=== PATIENT | male | born 1955 | race Caucasian/White ===

== ENCOUNTER 2020-03-06 04:36 | Inpatient (IN) | payer MEDICARE, MEDICAID ==
[~2020-03-06] VITALS: Ht 185.4 cm; Wt 129.3 kg
[2020-03-06] MEDS ORDERED: methylPREDNISolone SOD SUCC 125 MG/2 ML VL IV ONE (05:00)
[2020-03-06] MEDS ORDERED: LORazepam 2MG/ML-1ML VIAL IV ONE (05:00)
[2020-03-06] MEDS ORDERED: FUROSEMIDE 40 MG/4 ML VIAL IV ONE (05:00)
[2020-03-06] MEDS ORDERED: methylPREDNISolone SOD SUCC 125 MG/2 ML VL ONE (05:02)
[2020-03-06] MEDS ORDERED: ONDANSETRON HCL 4 MG/2 ML VIAL ONE (05:02)
[2020-03-06] MEDS ORDERED: FUROSEMIDE 40 MG/4 ML VIAL ONE (05:02)
[2020-03-06] MEDS ORDERED: LORazepam 2MG/ML-1ML VIAL ONE (05:02)
[2020-03-06] MEDS ORDERED: ONDANSETRON HCL 4 MG/2 ML VIAL IV ONE ×2 (05:15)
[2020-03-06 05:30] LABS: Basophils # (auto) 0 10 ^3/uL (0-0.2); Eosinophils # (auto) 0 10 ^3/uL (0-0.8); Monocytes # (auto) 0.8 10 ^3/uL (0-1.3); Neutrophils # (auto) 9.7 10 ^3/uL (1.6-8.6); Red Blood Cells 6.08 10^6/uL (4.5-5.90); White Blood Cell 11.5 10^3/uL (4.4-10.8)
[2020-03-06 05:32] LABS: Basophils % (auto) 0.2 % (0.0-2.0); Hematocrit 55.9 % (41.0-53.0); Hemoglobin 18.6 g/dL (13.5-17.5); Lymphocytes % (auto) 8.6 % (10.0-50.0); Mean Corpuscular Hemoglobin 30.6 pg (28.0-32.0); Mean Corpuscular Hgb Conc. 33.3 g/dL (32.0-36.0); Mean Corpuscular Volume 91.9 fL (80.0-100.0); Monocytes % (auto) 6.8 % (0.0-12.0); Neutrophils % (auto) 84.4 % (37.0-80.0); Nucleated Red Blood Cells % 0.3 %; Platelet Count (auto) 159 10^3/uL (140-450); Red Cell Distribution Width 13.8 % (11.8-14.3)
[2020-03-06] MEDS ORDERED: AMIODARONE 450mg/250ml AE 250 ML IV ONE (05:39)
[2020-03-06] MEDS ORDERED: AMIODARONE HCL 150 MG in D5W 5% 100 ML IV ONE (05:45)
[2020-03-06] MEDS ORDERED: AMIODARONE 450mg/250ml AE 250 ML IV SCH (05:45)
[2020-03-06 05:46] LABS: Albumin 3.6 g/dL (3.4-5.0); Calcium 8.6 mg/dL (8.5-10.1); Potassium 4.9 mmol/L (3.5-5.1)
[2020-03-06 05:48] LABS: Lactic Acid w/Reflex 4.8 mmol/L (0.4-2.0)
[2020-03-06 05:49] LABS: INR 1.5 (0.9-1.15); Partial Thromboplastin Time 37.7 sec (23.0-31.2)
[2020-03-06 05:53] LABS: BUN/Creatinine Ratio 20.2; Total Protein 9.1 g/dL (6.4-8.2)
[2020-03-06] MEDS ORDERED: ENOXAPARIN SOD 150 MG/1 ML SYRINGE SC ONE (06:00)
[2020-03-06 06:02] VITALS: BP 118/58
--- NOTE | 2020-03-06 07:35 | NUR ---
Respiratory note: TITRATED FIO2 TO 30% POST AM ABG.
[2020-03-06] MEDS ORDERED: MORPHINE SULF INJ 2 MG/ML SYRINGE 1ML IV PRN (10:00)
[2020-03-06] MEDS ORDERED: NITROGLYCERIN 0.4 MG SL TAB SL PRN (10:00)
[2020-03-06 10:07] VITALS: BP 110/44
--- NOTE | 2020-03-06 10:20 | NUR ---
Respiratory note: TOOK PATIENT OFF BIPAP AND PLACED PT ON A 3L OXYMIZER, SPO2 98%. DR. STOVALL AT BEDSIDE. DRU FORTE INFORMED.
[2020-03-06] MEDS ORDERED: SODIUM CHLORIDE 0.9% 1,000 ML IV ONE ×2 (10:45→14:30)
[2020-03-06] MEDS ORDERED: REMDESIVIR PER PHARMACY 0 ML IV SCH (10:45)
[2020-03-06] MEDS: ENOXAPARIN SOD 150 MG/1 ML SYRINGE SC SCH (11:00)
[2020-03-06] MEDS: AMIODARONE 450mg/250ml AE 250 ML IV SCH (11:08)
[2020-03-06] MEDS ORDERED: HYDR-531 PO (11:14)
[2020-03-06] MEDS ORDERED: BISA-4 PO (11:15)
[2020-03-06] MEDS ORDERED: RIVA20TA PO (11:15)
[2020-03-06] MEDS ORDERED: ALLO100T PO (11:15)
[2020-03-06] MEDS ORDERED: OXYB5TAB24 PO (11:15)
[2020-03-06] MEDS ORDERED: LISI-646 PO (11:15)
[2020-03-06] MEDS ORDERED: MORP1TAB12 PO (11:15)
[2020-03-06] MEDS ORDERED: INDO50CA82 PO (11:15)
[2020-03-06] MEDS ORDERED: TAMS0.4C36 PO (11:15)
[2020-03-06] MEDS ORDERED: CLOP75TA28 PO (11:15)
[2020-03-06] MEDS ORDERED: DEXTROSE (50%) 50ML SYRG IV PRN (13:45)
[2020-03-06] MEDS ORDERED: CLOPIDOGREL 300 MG TAB PO ONE (14:45)
[2020-03-06] MEDS: ACCU-CHEK COMFORT CURVE STRIP VI SCH ×2 (17:24→20:58)
[2020-03-06] MEDS: InsuLIN REG 1unit/0.01ml Soln (100units/ml) SC SCH ×2 (17:26→21:01)
[2020-03-06] MEDS ORDERED: ENOXAPARIN SOD 40 MG/0.4 ML SYRINGE SC SCH (22:00)
[2020-03-06] MEDS: BUDESONIDE (INHALATION) 180 MCG IH IN SCH (22:00)
[2020-03-06] MEDS: ALBUTEROL SULF HFA 90MCG INH 200DOSE IN PRN (22:36)
[2020-03-07] MEDS: AMIODARONE 450mg/250ml AE 250 ML IV SCH ×2 (02:45→13:18)
[2020-03-07 06:21] LABS: Basophils # (auto) 0 10 ^3/uL (0-0.2); Basophils % (auto) 0.2 % (0.0-2.0); Eosinophils # (auto) 0 10 ^3/uL (0-0.8); Hematocrit 49.8 % (41.0-53.0); Hemoglobin 16.1 g/dL (13.5-17.5); Lymphocytes # (auto) 1.8 10 ^3/uL (0.4-5.4); Lymphocytes % (auto) 11.8 % (10.0-50.0); Mean Corpuscular Hemoglobin 29.9 pg (28.0-32.0); Mean Corpuscular Hgb Conc. 32.3 g/dL (32.0-36.0); Mean Corpuscular Volume 92.8 fL (80.0-100.0); Monocytes # (auto) 0.6 10 ^3/uL (0-1.3); Monocytes % (auto) 4.1 % (0.0-12.0); Neutrophils # (auto) 12.6 10 ^3/uL (1.6-8.6); Neutrophils % (auto) 83.9 % (37.0-80.0); Nucleated Red Blood Cells % 0.2 %; Platelet Count (auto) 142 10^3/uL (140-450); Red Blood Cells 5.37 10^6/uL (4.5-5.90); Red Cell Distribution Width 13.9 % (11.8-14.3)
[2020-03-07 06:42] LABS: INR 1.16 (0.9-1.15); Partial Thromboplastin Time 34.2 sec (23.0-31.2)
[2020-03-07 06:48] LABS: Potassium 4.5 mmol/L (3.5-5.1)
[2020-03-07 07:15] LABS: Albumin 3.3 g/dL (3.4-5.0); BUN/Creatinine Ratio 35.3; Calcium 8.3 mg/dL (8.5-10.1); Total Protein 7.6 g/dL (6.4-8.2)
[2020-03-07] MEDS: BUDESONIDE (INHALATION) 180 MCG IH IN SCH ×2 (07:17→22:00)
[2020-03-07] MEDS: InsuLIN REG 1unit/0.01ml Soln (100units/ml) SC SCH ×4 (07:24→21:38)
[2020-03-07] MEDS: ACCU-CHEK COMFORT CURVE STRIP VI SCH ×4 (07:25→21:42)
[2020-03-07] MEDS: ASCORBIC ACID 1,000 MG TAB PO SCH (07:59)
[2020-03-07] MEDS: ZINC SULFATE 220mg CAP or TAB PO SCH (07:59)
[2020-03-07] MEDS: DexAMETHasone SOD PHOS 10MG/1ML VIAL INJ IV SCH (07:59)
[2020-03-07] MEDS: ENOXAPARIN SOD 150 MG/1 ML SYRINGE SC SCH ×2 (08:00→21:42)
[2020-03-07] MEDS: CHOLECALCIFEROL (VITD3) 2,000 UNIT CAP PO SCH (08:00)
[2020-03-07] MEDS ORDERED: METOPROLOL TARTRATE 1MG/1ML-5ML VIAL IV ONE ×2 (08:06→08:30)
[2020-03-07] MEDS ORDERED: clonazePAM 0.5 MG TAB PO ONE (08:30)
[2020-03-07] MEDS ORDERED: cloNIDine HCL 0.1 MG TAB PO PRN (08:30)
[2020-03-07] MEDS ORDERED: LOPERAMIDE HCL 2 MG CAP PO PRN (09:30)
[2020-03-07] MEDS ORDERED: PROMETHAZINE HCL 25 MG/ML 1ML IV PRN (09:30)
[2020-03-07] MEDS ORDERED: PROMETHAZINE HCL 25 MG/ML 1ML ONE (09:42)
[2020-03-07] MEDS ORDERED: LOPERAMIDE HCL 2 MG CAP ONE (09:42)
[2020-03-07] MEDS: ALBUTEROL SULF HFA 90MCG INH 200DOSE IN PRN (11:00)
[2020-03-07] MEDS ORDERED: AMIODARONE HCL 200 MG TAB PO ONE ×2 (14:00→14:30)
[2020-03-07] MEDS ORDERED: AMIODARONE HCL 200 MG TAB ONE (14:38)
[2020-03-07] MEDS: cloNIDine HCL 0.1 MG TAB PO PRN ×2 (18:02→23:35)
[2020-03-07] MEDS: AMIODARONE HCL 200 MG TAB PO SCH (21:42)
[2020-03-07] MEDS ORDERED: AMIODARONE HCL 200 MG TAB PO SCH (22:00)
[2020-03-08] MEDS ORDERED: ACETAMINOPHEN 650 mg PER 20.3 mL UD ONE (04:34)
[2020-03-08] MEDS: ACETAMINOPHEN 650 mg PER 20.3 mL UD PO PRN (04:41)
[2020-03-08 07:20] LABS: Albumin 3.1 g/dL (3.4-5.0); Calcium 8.2 mg/dL (8.5-10.1); Potassium 4.1 mmol/L (3.5-5.1)
[2020-03-08 07:24] LABS: Total Protein 7.4 g/dL (6.4-8.2)
[2020-03-08] MEDS: BUDESONIDE (INHALATION) 180 MCG IH IN SCH ×2 (08:10→21:39)
[2020-03-08] MEDS: ALBUTEROL SULF HFA 90MCG INH 200DOSE IN PRN ×2 (08:10→21:39)
[2020-03-08] MEDS: DexAMETHasone SOD PHOS 10MG/1ML VIAL INJ IV SCH (09:15)
[2020-03-08] MEDS: ACCU-CHEK COMFORT CURVE STRIP VI SCH ×4 (09:15→22:00)
[2020-03-08] MEDS: ZINC SULFATE 220mg CAP or TAB PO SCH (09:15)
[2020-03-08] MEDS: InsuLIN REG 1unit/0.01ml Soln (100units/ml) SC SCH ×4 (09:15→22:00)
[2020-03-08] MEDS: AMIODARONE HCL 200 MG TAB PO SCH ×2 (09:15→22:00)
[2020-03-08] MEDS: CHOLECALCIFEROL (VITD3) 2,000 UNIT CAP PO SCH (09:16)
[2020-03-08] MEDS: ENOXAPARIN SOD 150 MG/1 ML SYRINGE SC SCH ×2 (09:16→22:00)
[2020-03-08] MEDS: ASCORBIC ACID 1,000 MG TAB PO SCH (09:16)
--- NOTE | 2020-03-08 10:40 | NUR ---
WOUND CARE NOTE: ADDED PATIENT TO SKIN INTEGRITY MONITORING D/T LOW ALESSIA SCORE/ICU STATUS. PATIENT ADMITTED TO [facility] WITH DIAGNOSIS OF COVID 19, NSTEMI. CURRENT ALESSIA SCORE ASSESSED AT 12. WILL CALL BULB PLANTER TO ORDER HOSPITAL BED. PATIENT TO BE PLACED, PENDING DELIVERY BY [facility]. PATIENT HAS NO SKIN ISSUES PER BEDSIDE NURSE. PATIENT WOULD BENEFIT FROM: FREQUENT TURN SCHEDULE Q 2 HOURS, PRN CONDITION PERMITS, WITH PRESSURE REDISTRIBUTION USING PILLOWS/WEDGES, BID/PRN APPLICATION WITH MOISTURE BARRIER CREAM, OPTIFOAM GENTLE SACRAL DRESSING PREVENTATIVE, SKIN/WOUND CARE PLAN CONTINUED MONITORING BY WOUND CARE TEAM.
[2020-03-09] MEDS: SOD CHL 0.45% 1,000 ML IV SCH ×2 (04:45→23:30)
[2020-03-09 06:25] LABS: Basophils # (auto) 0.1 10 ^3/uL (0-0.2); Basophils % (auto) 0.4 % (0.0-2.0); Eosinophils # (auto) 0 10 ^3/uL (0-0.8); Hematocrit 50.3 % (41.0-53.0); Hemoglobin 16.8 g/dL (13.5-17.5); Lymphocytes # (auto) 0.8 10 ^3/uL (0.4-5.4); Lymphocytes % (auto) 5.8 % (10.0-50.0); Mean Corpuscular Hemoglobin 30.8 pg (28.0-32.0); Mean Corpuscular Hgb Conc. 33.5 g/dL (32.0-36.0); Monocytes # (auto) 0.9 10 ^3/uL (0-1.3); Monocytes % (auto) 6.6 % (0.0-12.0); Neutrophils # (auto) 12.3 10 ^3/uL (1.6-8.6); Neutrophils % (auto) 87.2 % (37.0-80.0); Nucleated Red Blood Cells % 0.1 %; Red Blood Cells 5.47 10^6/uL (4.5-5.90); White Blood Cell 14.2 10^3/uL (4.4-10.8)
[2020-03-09] MEDS: ACCU-CHEK COMFORT CURVE STRIP VI SCH ×4 (06:37→22:03)
[2020-03-09 06:42] LABS: Albumin 2.9 g/dL (3.4-5.0); Calcium 8.1 mg/dL (8.5-10.1); Magnesium 2.9 mg/dL (1.6-2.6); Potassium 4.3 mmol/L (3.5-5.1)
[2020-03-09 06:50] LABS: BUN/Creatinine Ratio 41.6; Bilirubin, Total 1.2 mg/dL (0.2-1.0); CRP High Sensitivity 1.81 mg/dL (< 0.3); Total Protein 7.4 g/dL (6.4-8.2)
[2020-03-09] MEDS: InsuLIN REG 1unit/0.01ml Soln (100units/ml) SC SCH ×4 (07:44→22:03)
[2020-03-09 07:55] LABS: Platelet Count (auto) 155 10^3/uL (140-450)
[2020-03-09] MEDS: BUDESONIDE (INHALATION) 180 MCG IH IN SCH ×2 (07:55→21:35)
[2020-03-09] MEDS: ALBUTEROL SULF HFA 90MCG INH 200DOSE IN PRN ×2 (08:36→21:35)
[2020-03-09] MEDS: DexAMETHasone SOD PHOS 10MG/1ML VIAL INJ IV SCH (12:14)
[2020-03-09] MEDS: PANTOPRAZOLE 40 MG/10 ML VIAL INJ IV SCH (12:14)
[2020-03-09] MEDS: CHOLECALCIFEROL (VITD3) 2,000 UNIT CAP PO SCH (12:14)
[2020-03-09] MEDS: ZINC SULFATE 220mg CAP or TAB PO SCH (12:15)
[2020-03-09] MEDS: ENOXAPARIN SOD 150 MG/1 ML SYRINGE SC SCH ×2 (12:15→22:03)
[2020-03-09] MEDS: ASCORBIC ACID 1,000 MG TAB PO SCH (12:15)
[2020-03-09] MEDS: AMIODARONE HCL 200 MG TAB PO SCH ×2 (12:15→22:02)
[2020-03-09] MEDS: AZITHROMYCIN 250 MG TAB PO SCH (12:15)
[2020-03-10] MEDS: ACETAMINOPHEN 650 mg PER 20.3 mL UD PO PRN (00:36)
[2020-03-10] MEDS: cloNIDine HCL 0.1 MG TAB PO PRN (01:27)
[2020-03-10] MEDS: ALBUTEROL SULF HFA 90MCG INH 200DOSE IN PRN ×2 (06:48→18:36)
[2020-03-10] MEDS: BUDESONIDE (INHALATION) 180 MCG IH IN SCH ×2 (06:49→18:00)
[2020-03-10 06:52] LABS: Basophils # (auto) 0 10 ^3/uL (0-0.2); Eosinophils # (auto) 0 10 ^3/uL (0-0.8); Hematocrit 49.8 % (41.0-53.0); Hemoglobin 16.7 g/dL (13.5-17.5); Lymphocytes # (auto) 0.9 10 ^3/uL (0.4-5.4); Lymphocytes % (auto) 6.3 % (10.0-50.0); Mean Corpuscular Hemoglobin 30.9 pg (28.0-32.0); Mean Corpuscular Hgb Conc. 33.6 g/dL (32.0-36.0); Mean Corpuscular Volume 91.9 fL (80.0-100.0); Monocytes # (auto) 0.9 10 ^3/uL (0-1.3); Monocytes % (auto) 6.3 % (0.0-12.0); Neutrophils # (auto) 12.6 10 ^3/uL (1.6-8.6); Neutrophils % (auto) 87.4 % (37.0-80.0); Nucleated Red Blood Cells % 0.1 %; Platelet Count (auto) 159 10^3/uL (140-450); Red Blood Cells 5.42 10^6/uL (4.5-5.90); Red Cell Distribution Width 13.6 % (11.8-14.3); White Blood Cell 14.4 10^3/uL (4.4-10.8)
[2020-03-10] MEDS: InsuLIN REG 1unit/0.01ml Soln (100units/ml) SC SCH ×4 (07:00→22:26)
[2020-03-10] MEDS: ACCU-CHEK COMFORT CURVE STRIP VI SCH ×4 (07:03→22:27)
[2020-03-10 07:08] LABS: Magnesium 2.8 mg/dL (1.6-2.6); Potassium 4.4 mmol/L (3.5-5.1)
[2020-03-10 07:18] LABS: Albumin 2.8 g/dL (3.4-5.0); BUN/Creatinine Ratio 37.3; Bilirubin, Total 1.4 mg/dL (0.2-1.0); CRP High Sensitivity 1.56 mg/dL (< 0.3); Calcium 8.3 mg/dL (8.5-10.1); Total Protein 7.6 g/dL (6.4-8.2)
[2020-03-10] MEDS: PANTOPRAZOLE 40 MG/10 ML VIAL INJ IV SCH (09:31)
[2020-03-10] MEDS: DexAMETHasone SOD PHOS 10MG/1ML VIAL INJ IV SCH (09:31)
[2020-03-10] MEDS: ZINC SULFATE 220mg CAP or TAB PO SCH (09:32)
[2020-03-10] MEDS: ASCORBIC ACID 1,000 MG TAB PO SCH (09:33)
[2020-03-10] MEDS: AMIODARONE HCL 200 MG TAB PO SCH ×2 (09:33→22:26)
[2020-03-10] MEDS: CHOLECALCIFEROL (VITD3) 2,000 UNIT CAP PO SCH (09:33)
[2020-03-10] MEDS: ENOXAPARIN SOD 150 MG/1 ML SYRINGE SC SCH ×2 (09:34→22:27)
[2020-03-10] MEDS: AZITHROMYCIN 250 MG TAB PO SCH (09:34)
[2020-03-10] MEDS: SOD CHL 0.45% 1,000 ML IV SCH (14:05)
[2020-03-11 06:08] LABS: Basophils # (auto) 0 10 ^3/uL (0-0.2); Basophils % (auto) 0.1 % (0.0-2.0); Eosinophils # (auto) 0 10 ^3/uL (0-0.8); Hematocrit 46.9 % (41.0-53.0); Hemoglobin 15.6 g/dL (13.5-17.5); Lymphocytes # (auto) 0.9 10 ^3/uL (0.4-5.4); Lymphocytes % (auto) 6.3 % (10.0-50.0); Mean Corpuscular Hemoglobin 30.3 pg (28.0-32.0); Mean Corpuscular Hgb Conc. 33.3 g/dL (32.0-36.0); Monocytes # (auto) 0.9 10 ^3/uL (0-1.3); Neutrophils # (auto) 11.7 10 ^3/uL (1.6-8.6); Neutrophils % (auto) 86.6 % (37.0-80.0); Platelet Count (auto) 188 10^3/uL (140-450); Red Blood Cells 5.15 10^6/uL (4.5-5.90); Red Cell Distribution Width 13.1 % (11.8-14.3); White Blood Cell 13.6 10^3/uL (4.4-10.8)
[2020-03-11 06:20] LABS: Albumin 2.3 g/dL (3.4-5.0); Calcium 7.5 mg/dL (8.5-10.1); Potassium 4.1 mmol/L (3.5-5.1)
[2020-03-11 06:28] LABS: BUN/Creatinine Ratio 36.4; Bilirubin, Total 1.1 mg/dL (0.2-1.0); CRP High Sensitivity 0.73 mg/dL (< 0.3); Magnesium 2.7 mg/dL (1.6-2.6); Total Protein 6.3 g/dL (6.4-8.2)
[2020-03-11] MEDS: InsuLIN REG 1unit/0.01ml Soln (100units/ml) SC SCH ×4 (06:37→22:00)
[2020-03-11] MEDS: ACCU-CHEK COMFORT CURVE STRIP VI SCH ×4 (06:37→22:00)
[2020-03-11] MEDS: BUDESONIDE (INHALATION) 180 MCG IH IN SCH ×2 (06:42→19:55)
[2020-03-11] MEDS: ALBUTEROL SULF HFA 90MCG INH 200DOSE IN PRN ×2 (06:42→19:59)
[2020-03-11] MEDS: ASPirin 81 mg TAB PO SCH (09:30)
[2020-03-11] MEDS: DexAMETHasone SOD PHOS 10MG/1ML VIAL INJ IV SCH (09:30)
[2020-03-11] MEDS: PANTOPRAZOLE 40 MG/10 ML VIAL INJ IV SCH (09:30)
[2020-03-11] MEDS: ZINC SULFATE 220mg CAP or TAB PO SCH (09:31)
[2020-03-11] MEDS: AMIODARONE HCL 200 MG TAB PO SCH ×2 (09:31→22:00)
[2020-03-11] MEDS: CARVEDILOL 3.125 MG TAB PO SCH ×2 (09:31→22:00)
[2020-03-11] MEDS: AZITHROMYCIN 250 MG TAB PO SCH (09:32)
[2020-03-11] MEDS: SACUBITRIL-VALSARTAN 24mg/26mg TAB PO SCH ×2 (09:32→22:40)
[2020-03-11] MEDS: ENOXAPARIN SOD 150 MG/1 ML SYRINGE SC SCH ×2 (09:32→22:00)
[2020-03-11] MEDS: ASCORBIC ACID 1,000 MG TAB PO SCH (09:32)
[2020-03-11] MEDS: CLOPIDOGREL BISULFATE 75 MG TAB PO SCH (09:32)
[2020-03-11] MEDS: CHOLECALCIFEROL (VITD3) 2,000 UNIT CAP PO SCH (09:32)
[2020-03-11] MEDS ORDERED: REMDESIVIR PER PHARMACY 0 ML IV SCH (13:15)
--- NOTE | 2020-03-11 14:42 | NUR ---
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 pt is currently on cardiac diet with no PO reocrded yet. pt with no distress noted per nursing Est energy needs: 3087-5864 kcal (11-14 kcal/kg BW 129kg), Est protein needs: 84-100 g (1-1.2g/kg IBW 84kg). Will monitor and reassess prn. Labs: BUN 46 H GLU 126 H CA 7.5 L, ANA 2.7 H ALB 2.3 L BM: Pt has no BM reported per RN note Skin: BS 12 high risk, full details in residential caregiver note. PES: Partially resolved: Inadequate oral intake r/t current medical condition aeb pt with NPo diet order Altered nutrition related labs r/t chronic medical condition and current medical condition aeb elevated BUN, hyperglycemia, mod hypoalb hypocalcemia Comments: Continue to monitor PO intake, labs, skin. F/u high 3-5 days. Rec: 1) Refer pt to [facility] on Dc 2) Continue current plan of care.
[2020-03-12] MEDS: InsuLIN REG 1unit/0.01ml Soln (100units/ml) SC SCH ×4 (06:34→22:30)
[2020-03-12] MEDS: ACCU-CHEK COMFORT CURVE STRIP VI SCH ×4 (06:34→22:30)
[2020-03-12 07:38] LABS: Basophils # (auto) 0 10 ^3/uL (0-0.2); Basophils % (auto) 0.2 % (0.0-2.0); Eosinophils # (auto) 0 10 ^3/uL (0-0.8); Eosinophils % (auto) 0.1 % (0.0-7.0); Hemoglobin 16.5 g/dL (13.5-17.5); Lymphocytes # (auto) 1.1 10 ^3/uL (0.4-5.4); Mean Corpuscular Hemoglobin 30.9 pg (28.0-32.0); Mean Corpuscular Hgb Conc. 34.3 g/dL (32.0-36.0); Mean Corpuscular Volume 90.2 fL (80.0-100.0); Monocytes # (auto) 1.1 10 ^3/uL (0-1.3); Neutrophils # (auto) 12.9 10 ^3/uL (1.6-8.6); Neutrophils % (auto) 85.7 % (37.0-80.0); Nucleated Red Blood Cells % 0.1 %; Platelet Count (auto) 222 10^3/uL (140-450); Red Blood Cells 5.32 10^6/uL (4.5-5.90); Red Cell Distribution Width 12.9 % (11.8-14.3); White Blood Cell 15.1 10^3/uL (4.4-10.8)
[2020-03-12 08:08] LABS: Potassium 3.9 mmol/L (3.5-5.1)
[2020-03-12 08:20] LABS: Albumin 2.4 g/dL (3.4-5.0); BUN/Creatinine Ratio 38.9; Bilirubin, Total 1.1 mg/dL (0.2-1.0); CRP High Sensitivity 0.39 mg/dL (< 0.3); Magnesium 2.7 mg/dL (1.6-2.6); Total Protein 6.5 g/dL (6.4-8.2)
[2020-03-12] MEDS: PANTOPRAZOLE 40 MG/10 ML VIAL INJ IV SCH (11:30)
[2020-03-12] MEDS: DexAMETHasone SOD PHOS 10MG/1ML VIAL INJ IV SCH (11:30)
[2020-03-12] MEDS: ASPirin 81 mg TAB PO SCH (11:48)
[2020-03-12] MEDS: CLOPIDOGREL BISULFATE 75 MG TAB PO SCH (11:48)
[2020-03-12] MEDS: AMIODARONE HCL 200 MG TAB PO SCH ×2 (11:48→22:30)
[2020-03-12] MEDS: CARVEDILOL 3.125 MG TAB PO SCH ×3 (11:48→23:30)
[2020-03-12] MEDS: ASCORBIC ACID 1,000 MG TAB PO SCH (11:49)
[2020-03-12] MEDS: ENOXAPARIN SOD 150 MG/1 ML SYRINGE SC SCH ×2 (11:49→22:30)
[2020-03-12] MEDS: CHOLECALCIFEROL (VITD3) 2,000 UNIT CAP PO SCH (11:49)
[2020-03-12] MEDS: AZITHROMYCIN 250 MG TAB PO SCH (11:49)
[2020-03-12] MEDS: SACUBITRIL-VALSARTAN 24mg/26mg TAB PO SCH ×2 (11:58→22:30)
[2020-03-12] MEDS: ZINC SULFATE 220mg CAP or TAB PO SCH (11:58)
[2020-03-12] MEDS ORDERED: REMDESIVIR 200 MG in NS 210ml LOADING DOSE ADULT IV ONE (15:00)
[2020-03-12] MEDS: BUDESONIDE (INHALATION) 180 MCG IH IN SCH ×2 (15:09→22:00)
--- NOTE | 2020-03-12 15:15 | NUR ---
Respiratory note: 10:00AM PULMICORT INH NON-ADMINISTERED DUE TO THERAPIST UNAVAILABLE. RN AWARE TO HAVE RT PAGED IF NEEDED. WILL HAVE NOC THERAPIST FOLLOW UP WITH NEXT SCHEDULED AT 22:00.
[2020-03-12] MEDS: Ensure HIGH Protein Chocolate 8oz Bottle PO SCH (18:15)
--- NOTE | 2020-03-12 22:00 | NUR ---
Respiratory note: THERAPIST UNAVAILABLE FOR MDI TX, WILL HAVE DAYSHIFT RT FOLLOW UP WITH NEXT SCHEDULED MDI [place].
[2020-03-13] MEDS: CARVEDILOL 3.125 MG TAB PO SCH ×3 (03:12→16:30)
[2020-03-13 05:56] LABS: Basophils # (auto) 0 10 ^3/uL (0-0.2); Basophils % (auto) 0.1 % (0.0-2.0); Eosinophils # (auto) 0 10 ^3/uL (0-0.8); Eosinophils % (auto) 0.1 % (0.0-7.0); Hematocrit 45.8 % (41.0-53.0); Hemoglobin 15.5 g/dL (13.5-17.5); Lymphocytes # (auto) 1.5 10 ^3/uL (0.4-5.4); Lymphocytes % (auto) 8.2 % (10.0-50.0); Mean Corpuscular Hemoglobin 30.4 pg (28.0-32.0); Mean Corpuscular Hgb Conc. 33.8 g/dL (32.0-36.0); Mean Corpuscular Volume 90.1 fL (80.0-100.0); Monocytes # (auto) 1.2 10 ^3/uL (0-1.3); Monocytes % (auto) 6.4 % (0.0-12.0); Neutrophils # (auto) 15.4 10 ^3/uL (1.6-8.6); Neutrophils % (auto) 85.2 % (37.0-80.0); Nucleated Red Blood Cells % 0.1 %; Platelet Count (auto) 294 10^3/uL (140-450); Red Blood Cells 5.08 10^6/uL (4.5-5.90); Red Cell Distribution Width 13.2 % (11.8-14.3); White Blood Cell 18.1 10^3/uL (4.4-10.8)
[2020-03-13] MEDS: ACCU-CHEK COMFORT CURVE STRIP VI SCH ×4 (06:03→22:03)
[2020-03-13] MEDS: InsuLIN REG 1unit/0.01ml Soln (100units/ml) SC SCH ×4 (06:03→22:02)
[2020-03-13 06:27] LABS: Potassium 4.3 mmol/L (3.5-5.1)
[2020-03-13 06:55] LABS: Albumin 2.3 g/dL (3.4-5.0); BUN/Creatinine Ratio 50.5; CRP High Sensitivity 0.28 mg/dL (< 0.3); Calcium 8.7 mg/dL (8.5-10.1); Magnesium 2.5 mg/dL (1.6-2.6); Total Protein 6.4 g/dL (6.4-8.2)
[2020-03-13] MEDS: BUDESONIDE (INHALATION) 180 MCG IH IN SCH ×2 (07:51→20:01)
[2020-03-13] MEDS: Ensure HIGH Protein Chocolate 8oz Bottle PO SCH ×3 (08:00→18:00)
[2020-03-13] MEDS ORDERED: REMDESIVIR PER PHARMACY 0 ML IV SCH (09:45)
[2020-03-13] MEDS: ZINC SULFATE 220mg CAP or TAB PO SCH (09:56)
[2020-03-13] MEDS: DexAMETHasone SOD PHOS 10MG/1ML VIAL INJ IV SCH (09:56)
[2020-03-13] MEDS: ASCORBIC ACID 1,000 MG TAB PO SCH (09:56)
[2020-03-13] MEDS: AZITHROMYCIN 250 MG TAB PO SCH (09:56)
[2020-03-13] MEDS: ENOXAPARIN SOD 150 MG/1 ML SYRINGE SC SCH ×2 (09:56→22:03)
[2020-03-13] MEDS: AMIODARONE HCL 200 MG TAB PO SCH ×2 (09:56→21:57)
[2020-03-13] MEDS: SACUBITRIL-VALSARTAN 24mg/26mg TAB PO SCH ×2 (09:56→22:00)
[2020-03-13] MEDS: CHOLECALCIFEROL (VITD3) 2,000 UNIT CAP PO SCH (09:56)
[2020-03-13] MEDS: CLOPIDOGREL BISULFATE 75 MG TAB PO SCH (09:56)
[2020-03-13] MEDS: ASPirin 81 mg TAB PO SCH (09:56)
[2020-03-13] MEDS: PANTOPRAZOLE 40 MG/10 ML VIAL INJ IV SCH (09:56)
[2020-03-13] MEDS ORDERED: REMDESIVIR 100 MG in SODIUM CHL 0.9% 250 ML IV SCH (15:00)
[2020-03-13] MEDS: ALBUTEROL SULF HFA 90MCG INH 200DOSE IN PRN (20:01)
[2020-03-14] MEDS: CARVEDILOL 3.125 MG TAB PO SCH ×2 (02:23→02:25)
[2020-03-14] MEDS: InsuLIN REG 1unit/0.01ml Soln (100units/ml) SC SCH (05:51)
[2020-03-14 05:52] LABS: Hematocrit 42.1 % (41.0-53.0); Hemoglobin 13.7 g/dL (13.5-17.5); Mean Corpuscular Hgb Conc. 32.6 g/dL (32.0-36.0); Platelet Count (auto) 355 10^3/uL (140-450); Red Blood Cells 4.58 10^6/uL (4.5-5.90); Red Cell Distribution Width 13.5 % (11.8-14.3); White Blood Cell 25.7 10^3/uL (4.4-10.8)
[2020-03-14] MEDS: ACCU-CHEK COMFORT CURVE STRIP VI SCH (05:52)
[2020-03-14 06:07] LABS: Potassium 5.2 mmol/L (3.5-5.1)
[2020-03-14 06:17] LABS: Albumin 2.3 g/dL (3.4-5.0); BUN/Creatinine Ratio 37.1; Bilirubin, Total 0.9 mg/dL (0.2-1.0); CRP High Sensitivity 0.25 mg/dL (< 0.3); Calcium 7.7 mg/dL (8.5-10.1)
[2020-03-14] MEDS ORDERED: NOREPINEPHRINE 8 MG/250ML KIT 250 ML IV ONE ×2 (06:25→08:52)
[2020-03-14 06:50] LABS: Basophils % (manual) 0 (0.0-2.0); Blast Cells 0; Eosinophils % (manual) 0 (0-7); Promyelocytes % 0; Reactive Lymphocytes 0
[2020-03-14 08:00] VITALS: BP 139/48
[2020-03-14] MEDS ORDERED: MIDAZOLAM DRIP 50 mg/50mL 50 ML IV ONE (08:05)
--- NOTE | 2020-03-14 08:05 | NUR ---
Respiratory note: CODE BLUE CALLED OVERHEAD. PT ORALLY INTUBATED PER ON FIRST ATTEMPT. COLOR CHANGE NOTED ON CO2 DETECTOR. BILATERAL BREATH SOUNDS HEARD. BILATERAL CHEST RISE AND FALL. PT PLACED ON VENTILATOR. PT CODED MULTIPLE TIMES SEE CODE SHEET.
[2020-03-14 08:21] LABS: Band Neutrophils % (manual) 3; Lymphocytes % (manual) 11 (10.0-50.0); Metamyelocytes % 3; Monocytes % (manual) 1 (0-12); Myelocytes % 1
[2020-03-14] MEDS ORDERED: MIDAZOLAM DRIP 50 mg/50mL 50 ML IV SCH (08:30)
[2020-03-14] MEDS ORDERED: SODIUM BICARBONATE 8.4% INJ 50ML SYRINGE ONE ×2 (08:45→08:52)
[2020-03-14] MEDS ORDERED: EPINEPHrine HCL 1 MG/10 ML SYRG ONE (09:08)
[2020-03-14] MEDS ORDERED: REMDESIVIR PER PHARMACY 0 ML IV SCH (13:30)
[2020-03-14] MEDS ORDERED: CALCIUM CHLOR(10%) 100MG/ML 10ML SYRINGE IV ONE (14:41)
[2020-03-14] MEDS ORDERED: SODIUM BICARBONATE 8.4% INJ 50ML SYRINGE IV ONE (14:41)
[2020-03-14] MEDS ORDERED: EPINEPHrine HCL 1 MG/10 ML SYRG IV ONE (14:41)
[2020-03-14] MEDS ORDERED: DEXTROSE (50%) 50ML SYRG IV ONE (14:41)
[2020-03-14] MEDS ORDERED: ATROPINE SULF 1 MG/10ml SYR IV ONE (14:41)
== END 2020-03-14 09:25 | DRG 871 ==
LOC: EDBD 04:36 → ER 04:36 → OVERFLOW 04:37
PROVIDERS: ADMIT Internal Medicine; ATTEND Internal Medicine
PROC: XW033E5 Introduction of Remdesivir Anti-infective into Peripheral Vein, Percutaneous Approach, New Technology Group 5 (ICD-10-PCS; principal; 2020-03-06)
PROC: 5A09357 Assistance with Respiratory Ventilation, Less than 24 Consecutive Hours, Continuous Positive Airway Pressure (ICD-10-PCS; 2020-03-06)
PROC: 06HM33Z Insertion of Infusion Device into Right Femoral Vein, Percutaneous Approach (ICD-10-PCS; 2020-03-07)
PROC: 5A1935Z Respiratory Ventilation, Less than 24 Consecutive Hours (ICD-10-PCS; 2020-03-14)
PROC: 0BH17EZ Insertion of Endotracheal Airway into Trachea, Via Natural or Artificial Opening (ICD-10-PCS; 2020-03-14)
PROC: 5A12012 Performance of Cardiac Output, Single, Manual (ICD-10-PCS; 2020-03-14)
DX: A41.9 Sepsis, unspecified organism (principal); U07.1 COVID-19; J96.01 Acute respiratory failure with hypoxia; I21.4 Non-ST elevation (NSTEMI) myocardial infarction; J12.89 Other viral pneumonia; I50.21 Acute systolic (congestive) heart failure; N17.9 Acute kidney failure, unspecified; I13.0 Hypertensive heart and chronic kidney disease with heart failure and stage 1 through stage 4 chronic kidney disease, or unspecified chronic kidney disease; J44.1 Chronic obstructive pulmonary disease with (acute) exacerbation; J45.901 Unspecified asthma with (acute) exacerbation; I42.9 Cardiomyopathy, unspecified; I48.20 Chronic atrial fibrillation, unspecified; J44.0 Chronic obstructive pulmonary disease with (acute) lower respiratory infection; R65.20 Severe sepsis without septic shock; I48.91 Unspecified atrial fibrillation; E66.01 Morbid (severe) obesity due to excess calories; E11.65 Type 2 diabetes mellitus with hyperglycemia; M10.9 Gout, unspecified; N18.30 Chronic kidney disease, stage 3 unspecified; E11.22 Type 2 diabetes mellitus with diabetic chronic kidney disease; E11.40 Type 2 diabetes mellitus with diabetic neuropathy, unspecified; I25.10 Atherosclerotic heart disease of native coronary artery without angina pectoris; N40.0 Benign prostatic hyperplasia without lower urinary tract symptoms; Z79.01 Long term (current) use of anticoagulants; Z86.73 Personal history of transient ischemic attack (TIA), and cerebral infarction without residual deficits; Z95.5 Presence of coronary angioplasty implant and graft; I25.2 Old myocardial infarction; Z68.37 Body mass index [BMI] 37.0-37.9, adult
CPT/HCPCS: 36415; 36600; 71045; 76705; 80053; 82550; 82805; 82962; 83036; 83605; 83615; 83735; 83880; 84443; 84484; 85007; 85025; 85027; 85379; 85610; 85730; 86141; 87040; 87426; 87493; 92950; 93005; 93306; 94002; 94640; 94660; C9113; G0378; J1100; J1815; J2250; J2405; J7060